=== PATIENT | female | born 1945 | race Hispanic/Latino ===

== ENCOUNTER 2016-10-15 08:43 | Day surgery (SDC) | payer MEDICARE ==
[~2016-10-15 08:43] MED LIST: NACL 0.9% 1000 ML 1,000 ML IV SCH; VANCOMYCIN/NS 1 GM/250 ML 1 GM/250 ML BAG IV NR
--- NOTE | 2016-10-15 09:44 | Anesthesia Consultation ---
Anesthesia Consult and Med Hx Date of service: 10/15/16 - Airway Anesthetic Teeth Evaluation: Poor ROM Head & Neck: Adequate Mental/Hyoid Distance: Adequate Mallampati Class: Class II Intubation Access Assessment: Probably Good - Pulmonary Exam CTA: Yes - Cardiac Exam Cardiac Exam: RRR - Pre-Operative Health Status ASA Pre-Surgery Classification: ASA4 Proposed Anesthetic Plan: General - Pulmonary Hx Asthma: Yes (not treated in a long time) - Cardiovascular System Hx Hypertension: Yes - Central Nervous System Hx Psychiatric Problems: Yes - Endocrine Hx Renal Disease: Yes (not on dialysis at this time, anticipated in future) - Other Systems Hx Cancer: No
--- NOTE | 2016-10-15 09:45 | Anesthesia Day of Surgery ---
Anesthesia Day of Surgery - Day of Surgery Patient Examined: Yes Patient H&P Reviewed: Yes Patient is NPO: Yes
[2016-10-15 09:47] LABS: Basophils % (Auto) 0.7 % (0.0-1.8); Eosinophils % (Auto) 2.6 % (0.0-4.3); Hematocrit 34.3 % (30.3-42.9); Hemoglobin 11.6 gm/dl (10.1-14.3); Mean Corpuscular HGB Conc 34 % (30-34); Mean Corpuscular Hemoglobin 30 pg (28-32); Mean Corpuscular Volume 88 fl (79-97); Platelet Count 140 K/mm3 (140-440); Red Blood Count 3.91 M/mm3 (3.65-5.03); Red Cell Distribution Width 15.3 % (13.2-15.2); White Blood Count 6.9 K/mm3 (4.5-11.0)
[2016-10-15 10:00] LABS: BUN/Creatinine Ratio 10.58; Calcium 8.4 mg/dL (8.4-10.2); Chloride 97.4 mmol/L (98-107); Potassium 3.6 mmol/L (3.6-5.0)
[2016-10-15] MEDS ORDERED: MARCAINE 0.5% INFILTRATI ONE ×2 (10:43→11:49)
[2016-10-15] MEDS ORDERED: NACL 0.9% 500 ML 500 ML ONE (10:44)
[2016-10-15] MEDS ORDERED: HEPARIN 10,000 UNITS/10 ML ONE (10:44)
[2016-10-15] MEDS ORDERED: PROTAMINE SULFATE ONE (10:44)
[2016-10-15] MEDS ORDERED: XYLOCAINE 1%/ EPI 1:100,000 INFILTRATI ONE (10:45)
[2016-10-15] MEDS ORDERED: SODIUM BICARBONATE ONE (10:45)
[2016-10-15] MEDS ORDERED: VERSED ONE (10:48)
[2016-10-15] MEDS ORDERED: SUBLIMAZE ONE (10:48)
[2016-10-15] MEDS ORDERED: DIPRIVAN 10 MG/ML IV ONE (10:49)
[2016-10-15] MEDS ORDERED: HEPARIN 10,000 UNITS/10 ML IV ONE (11:49)
[2016-10-15] MEDS ORDERED: NACL 0.9% 500 ML IV ONE (11:49)
[2016-10-15] MEDS ORDERED: ePHEDrine SULFATE ONE (12:41)
[2016-10-15] MEDS ORDERED: DECADRON ONE (12:46)
--- NOTE | 2016-10-15 13:42 | Short Stay Summary ---
Short Stay Documentation Date of service: 10/15/16 - History H&P: obtained from office Past Medical History: arrhythmia, diabetes, hypertension, renal failure Social history: no significant social history - Allergies and Medications Current Medications: Allergies Penicillins Allergy (Verified 10/09/16 14:25) Anaphylaxis gel injections for joints Allergy (Uncoded 10/09/16 14:25) Rash muscle relaxers Allergy (Uncoded 10/09/16 14:25) SOB, rash Home Medications Medication Instructions Recorded Confirmed Last Taken Type Aspirin [Aspirin TAB] 325 mg PO QDAY 10/15/16 10/15/16 10/14/16 History Carvedilol [Coreg] 3.125 mg PO BID 10/15/16 10/15/16 10/15/16 History Citalopram Hydrobromide 40 mg PO 10/15/16 10/15/16 History [Citalopram HBr] Dextromethorphan Polistirex 30 mg PO 10/15/16 10/14/16 History [Delsym] Diazepam [Valium] 10 mg PO 10/15/16 10/14/16 History Furosemide [Lasix TAB] 40 mg PO PRN 10/15/16 10/15/16 10/06/16 History Gabapentin [Neurontin] 300 mg PO Q8HR 10/15/16 10/15/16 10/15/16 History Hydrochlorothiazide [HCTZ] 25 mg PO QDAY 10/15/16 10/15/16 10/15/16 History Levothyroxine Sodium [Unithroid] 112 mcg PO 10/15/16 10/15/16 History Linagliptin [Tradjenta] 5 mg PO QDAY 10/15/16 10/15/16 10/15/16 History Lovastatin [Altoprev] 20 mg PO 10/15/16 10/14/16 History Multivit-Min/Iron Fum/Folic AC 1 mg PO DAILY 10/15/16 10/15/16 10/15/16 History [Vfqfc-Njmjwso-Aokbkpkp Tablet] [place]-3/Dha/Epa/Fish Oil [[place] 3 500 mg PO DAILY 10/15/16 10/15/16 10/15/16 History 500 Softgel] Omeprazole 40 mg PO 10/15/16 10/15/16 History fentaNYL [Fentanyl] 1 each TD 10/15/16 10/14/16 History methylPREDNISolone [Medrol] 4 mg PO 10/15/16 Unknown History oxyCODONE /ACETAMINOPHEN [Percocet 1 tab PO 10/15/16 10/14/16 History 5/325] traZODone [Desyrel] 100 mg PO QHS 10/15/16 10/15/16 10/14/16 History Active Medications Sodium Chloride (Nacl 0.9% 1000 Ml) 1,000 mls @ 42 mls/hr IV DIRECT REGULO Last Admin: 10/15/16 10:15 Dose: 42 mls/hr Vancomycin HCl (Vancomycin/Ns 1 Gm/250 Ml) 1 gm in 250 mls @ 166.667 mls/hr IV PREOP NR PRN Reason: Protocol Stop: 10/15/16 23:59 Last Admin: 10/15/16 10:16 Dose: 166.667 mls/hr - Physical exam Extremities: pulses intact - Brief post op/procedure progress note Date of procedure: 10/15/16 Pre-op diagnosis: renal failure Post-op diagnosis: same Procedure: left brachiocephalic AVF creation Anesthesia: GETA Findings: patent brachial artery, no plaque, cephalic vein without evidence of thrombus Surgeon: MAGALI KINGSTON Social Media Community Manager: JANICE PERRY Estimated blood loss: minimal Pathology: none Condition: stable - Disposition Condition at discharge: Good Disposition: DC-01 TO HOME OR SELFCARE Short Stay Discharge Plan Activity: no restrictions Weight Bearing Status: Full Weight Bearing Diet: renal Wound: open to air Special Instructions: no heavy lifting Follow up with: JOYCELYN ART MD [Primary Care Provider] - 7 Days MAGALI KINGSTON DO [Staff Physician] - 14 Days
--- NOTE | 2016-10-15 13:57 | Operative Report ---
Operative Report Operative Report: Operative note: Date: 10/15/2016 Preoperative diagnosis: Renal failure Postoperative diagnosis: Same. Operation: creation of left brachiocephalic AV fistula Surgeon: Rea Liu. Asst.: Azeem Han Anesthesia: Gen. EBL: Minimal Findings: Patent brachial artery without evidence of plaque. Cephalic vein without evidence of thrombosis. Indications: 71-year-old lady with chronic kidney disease stage IV and possible start of dialysis in the near future was recommended by shellfish checker for creation of AV fistula. She was explained risks, benefits and alternatives of procedure and she chose to proceed, signed informed consent. Operative details: The ultrasound was performed identifying cephalic vein. It was compressible is good size throughout its length from the wrist level. Incision was made with 15 blade about 1 cm below elbow crease and carried down with electrocautery. Initially we dissected around cephalic vein mobilizing, then dissected the brachial artery transecting the serpiginous aponeurosis. Cephalic vein was transected distally ligating branches with 3-0 silk. It was irrigated with heparinized saline with olive-tipped syringe. Patient was heparinozed with 2000 units of heparin. Distal and proximal control for radial artery was again was gained by 2 vessel loops. Arteriotomy was created with 11 blade and extended with Johnson scissors. Anastomosis was created was running 6-0 Prolene. Before completion of anastomosis the artery was backbled and forward bled and flushed with heparinized saline. When the artery was released it had thrill in the cephalic vein as well as palpable radial pulse. Hemostasis was achieved with electrocautery it was irrigated and incision was closed in 2 layers with 3- 0 Vicryl and 4-0 Monocryl. Dermabond glue applied. Needle and sponge counts were correct 2. Patient tolerated procedure well and was transferred to PACU in stable condition.
--- NOTE | 2016-10-15 14:02 | Event Note ---
Date: 10/15/16 During the procedure it was noted that patient had bradycardia with first- degree AV block. After procedure patient had EKG done. Her cardiac history was discussed with 's nurse. She faxed recent records. The EKG was compared and there were no new changes noted. Patient had cardiac workup in August in preparation for her procedure. We'll discharge patient and she will follow up with her primary care physician and certified caregiver.
--- NOTE | 2016-10-15 14:42 | Post Anesthesia Evaluation ---
- Post Anesthesia Evaluation Patient Participated: Yes Airway Patent: Yes Stable Respiratory Function: Yes Nausea/Vomiting: No Temp > 96.8F: Yes Pain Manageable: Yes Adequeate Hydration: Yes Anesthesia Complications: No Block Receding Appropriately: Not Applicable Patient on Ventilator: No Other Comments: EKG sinus yara with 1st degree AV block.
[2016-10-15 16:06] VITALS: BP 109/42
== END 2016-10-15 15:42 | disposition home or self-care (01) ==
LOC: OR 08:43
PROVIDERS: ATTEND Surgery Vascular Surgery
DX: E11.22 Type 2 diabetes mellitus with diabetic chronic kidney disease (principal); I12.9 Hypertensive chronic kidney disease with stage 1 through stage 4 chronic kidney disease, or unspecified chronic kidney disease; N18.4 Chronic kidney disease, stage 4 (severe); I44.0 Atrioventricular block, first degree; E78.00 Pure hypercholesterolemia, unspecified; Z88.0 Allergy status to penicillin; Z88.8 Allergy status to other drugs, medicaments and biological substances; Z79.82 Long term (current) use of aspirin; Z79.899 Other long term (current) drug therapy; Z90.710 Acquired absence of both cervix and uterus; Z98.890 Other specified postprocedural states; Z96.643 Presence of artificial hip joint, bilateral; Z80.9 Family history of malignant neoplasm, unspecified; Z83.3 Family history of diabetes mellitus
CPT/HCPCS: 36415; 36821; 80048; 82962; 85025; 93005; 93010; C1757; J1100; J1644; J2250; J2704; J3010; J3370; J7030; J7040; J2720

== ENCOUNTER 2017-01-05 23:04 | Emergency (ER) | payer MEDICARE ==
[2017-01-05 23:48] LABS: Hematocrit 37.7 % (30.3-42.9); Hemoglobin 12.1 gm/dl (10.1-14.3); Mean Corpuscular HGB Conc 32 % (30-34); Mean Corpuscular Hemoglobin 29 pg (28-32); Mean Corpuscular Volume 91 fl (79-97); Platelet Count 126 K/mm3 (140-440); Red Blood Count 4.16 M/mm3 (3.65-5.03); Red Cell Distribution Width 17.1 % (13.2-15.2); White Blood Count 5.8 K/mm3 (4.5-11.0)
--- NOTE | 2017-01-06 00:05 | Cat Scan Report ---
FINAL REPORT PROCEDURE: CT HEAD/BRAIN WO CON TECHNIQUE: Computerized tomography of the head was performed without contrast material. HISTORY: hematoma from fall COMPARISON: No prior studies are available for comparison. FINDINGS: Skull and scalp: There is left frontal scalp swelling. There is no skull fracture.. Paranasal sinuses: Normal. Ventricles and subarachnoid spaces: There is mild central and cortical atrophy. There is no hydrocephalus or asymmetry.. Cerebrum: No evidence of hemorrhage, acute infarction or mass . Cerebellum and brainstem: No evidence of hemorrhage, acute infarction or mass. Vasculature: Normal. Comments: There is minimal periventricular deep white matter ischemic gliosis.. IMPRESSION: Left frontal scalp swelling. There is no skull fracture. There is no intracranial hemorrhage.
[2017-01-06 00:09] LABS: Calcium 8.7 mg/dL (8.4-10.2); Chloride 88.7 mmol/L (98-107); Potassium 4.3 mmol/L (3.6-5.0)
[2017-01-06 02:27] LABS: Bilirubin,Urine NEG (Negative); Blood,Urine NEG (Negative); Ketones,Urine NEG (Negative); Leukocyte Esterase,Urine LG (Negative); Mucus,Urine FEW /HPF; Nitrite,Urine NEG (Negative); Protein,Urine <15 mg/dL mg/dL (Negative); Urobilinogen,Urine < 2.0 mg/dL (<2.0)
[2017-01-06 04:01] VITALS: BP 114/80
--- NOTE | 2017-01-06 05:24 | Emergency Department Report ---
HPI - General Chief Complaint: Head Injury Time Seen by Provider: 01/06/17 05:08 - HPI HPI: This is a 71-year-old female presents the emergency department from home with complaint of a mechanical fall and a head injury. The patient was getting up from bed and got her feet tangled in a blanket on the floor that is therefore their puppies and this caused her to fall over and hit the left side of her forehead and/or lutheran on a wooden chest of drawers. There was no loss of consciousness. She denies any blurred vision, slurred speech or any neurological deficits. She denies any acute neck or back pain. Patient has a history of arthritis, asthma, diabetes, hypertension, chronic kidney disease. She has multiple surgeries including hysterectomy, orthopedic surgeries and partial intestinal removal. She did not take anything for her symptoms prior to presentation. ED Past Medical Hx - Past Medical History Hx Hypertension: Yes Hx Diabetes: Yes Hx GERD: Yes Hx Renal Disease: Yes ([place]) Hx Arthritis: Yes Hx Asthma: Yes (not treated in a long time) Hx HIV: No - Surgical History Hx Appendectomy: Yes Additional Surgical History: D/C x5,hysterectomy,right hip x2,right shoulder replacement,knee replacement left,intestinal twisted and partial removal-2014, - Social History Smoking Status: Never Smoker Substance Use Type: None - Medications Home Medications: Home Medications Medication Instructions Recorded Confirmed Last Taken Type Aspirin [Aspirin TAB] 325 mg PO QDAY 10/15/16 10/15/16 10/14/16 History Carvedilol [Coreg] 3.125 mg PO BID 10/15/16 10/15/16 10/15/16 History Citalopram Hydrobromide 40 mg PO 10/15/16 10/15/16 History [Citalopram HBr] Dextromethorphan Polistirex 30 mg PO 10/15/16 10/14/16 History [Delsym] Diazepam [Valium] 10 mg PO 10/15/16 10/14/16 History Furosemide [Lasix TAB] 40 mg PO PRN 10/15/16 10/15/16 10/06/16 History Gabapentin [Neurontin] 300 mg PO Q8HR 10/15/16 10/15/16 10/15/16 History Hydrochlorothiazide [HCTZ] 25 mg PO QDAY 0810/15/16 10/15/16 History Levothyroxine Sodium [Unithroid] 112 mcg PO 10/15/16 10/15/16 History Linagliptin [Tradjenta] 5 mg PO QDAY 10/15/16 10/15/16 10/15/16 History Lovastatin [Altoprev] 20 mg PO 10/15/16 10/14/16 History Multivit-Min/Iron Fum/Folic AC 1 mg PO DAILY 10/15/16 10/15/16 10/15/16 History [Tfwcg-Tsmvkym-Oyndsvnb Tablet] [place]-3/Dha/Epa/Fish Oil [[place] 3 500 mg PO DAILY 10/15/16 10/15/16 10/15/16 History 500 Softgel] Omeprazole 40 mg PO 10/15/16 10/15/16 History fentaNYL [Fentanyl] 1 each TD 10/15/16 10/14/16 History methylPREDNISolone [Medrol Dose 4 mg PO 10/15/16 Unknown History Eloy] oxyCODONE /ACETAMINOPHEN [Percocet 1 tab PO 10/15/16 10/14/16 History 5/325 mg] traZODone [Desyrel] 100 mg PO QHS 10/15/16 10/15/16 10/14/16 History ED Review of Systems ROS: Stated complaint: HEAD INJURY Other details as noted in HPI Comment: All other systems reviewed and negative Constitutional: denies: chills, fever Eyes: denies: eye pain, eye discharge, vision change ENT: denies: ear pain, throat pain Respiratory: denies: cough, shortness of breath, wheezing Cardiovascular: denies: chest pain, palpitations Gastrointestinal: denies: abdominal pain, nausea, diarrhea Genitourinary: denies: urgency, dysuria, discharge Musculoskeletal: denies: back pain, joint swelling, arthralgia Skin: denies: rash, lesions Neurological: headache. denies: numbness Physical Exam - Physical Exam Vital Signs: Vital Signs 01/05/17 01/05/17 01/06/17 23:09 23:26 03:59 Temperature 98.1 F 98.1 F 98.1 F Pulse Rate 67 69 75 Respiratory 18 18 18 Rate Blood Pressure 138/70 138/70 Blood Pressure 114/80 [Right] O2 Sat by Pulse 92 100 94 Oximetry Physical Exam: GENERAL: The patient is well-developed well-nourished. HENT: Normocephalic. There is a non-expanding hematoma with ecchymosis to the left lateral forehead. Patient has moist mucous membranes. No septal hematoma. EYES: Extraocular motions are intact. Pupils equal reactive to light bilaterally. No nystagmus. NECK: Supple. Trachea is midline. Full range of motion. CHEST/LUNGS: Clear to auscultation. There is no respiratory distress noted. HEART/CARDIOVASCULAR: Regular. There is no tachycardia. There is no gallop rub or murmur. ABDOMEN: Abdomen is soft. Non tender. SKIN: Skin is warm and dry. There is a non-expanding hematoma with ecchymosis to the left lateral forehead. NEURO: The patient is awake, alert, and oriented. The patient is cooperative. The patient has no focal neurologic deficits. The patient has normal speech. Cranial nerves II through XII grossly intact. MUSCULOSKELETAL: There is no tenderness or deformity. There is no limitation range of motion. ED Course Vital Signs 01/05/17 01/05/17 01/06/17 23:09 23:26 03:59 Temperature 98.1 F 98.1 F 98.1 F Pulse Rate 67 69 75 Respiratory 18 18 18 Rate Blood Pressure 138/70 138/70 Blood Pressure 114/80 [Right] O2 Sat by Pulse 92 100 94 Oximetry ED Medical Decision Making - Lab Data Result diagrams: 01/05/17 23:37 01/05/17 23:37 - Radiology Data Radiology results: report reviewed PROCEDURE: CT HEAD/BRAIN WO CON TECHNIQUE: Computerized tomography of the head was performed without contrast material. HISTORY: hematoma from fall COMPARISON: No prior studies are available for comparison. FINDINGS: Skull and scalp: There is left frontal scalp swelling. There is no skull fracture.. Paranasal sinuses: Normal. Ventricles and subarachnoid spaces: There is mild central and cortical atrophy. There is no hydrocephalus or asymmetry.. Cerebrum: No evidence of hemorrhage, acute infarction or mass . Cerebellum and brainstem: No evidence of hemorrhage, acute infarction or mass. Vasculature: Normal. Comments: There is minimal periventricular deep white matter ischemic gliosis.. IMPRESSION: Left frontal scalp swelling. There is no skull fracture. There is no intracranial hemorrhage. Transcribed By: CO Dictated By: AVTAR FERRO MD Electronically Authenticated By: AVTAR FERRO MD Signed Date/Time: 01/05/172002 - Medical Decision Making 71-year-old female presents after having a mechanical fall and hitting the left side of her head. No loss of consciousness. CT does not show any fracture, brain bleed or any acute process. She does not have any focal, motor or sensory deficits or cranial nerves are intact. There is a few labs checked through triage that showed her to have some hyponatremia with sodium of 129. I spoke briefly with the patient's nephrology service, Dr. Allison, who recommended a slight bolus and then a repeat of the labs. The patient and her family of heart event here for a few hours and they do not want to stay any further. They say that they have close follow-up in the next 2 days with both primary care and nephrology. Since she appears otherwise a symptomatically from hyponatremia, she will sign the AMA form but will be given discharge paperwork and encouraged follow-up with her physicians. She'll return to the ER with any worsening symptoms or any acute distress. - Differential Diagnosis skull fracture, brain bleed, concussion, contusion Critical Care Time: No Critical care attestation.: If time is entered above; I have spent that time in minutes in the direct care of this critically ill patient, excluding procedure time. ED Disposition Clinical Impression: Hyponatremia Fall Qualifiers: Encounter type: initial encounter Qualified Code(s): W19.XXXA - Unspecified fall, initial encounter CKD (chronic kidney disease) Qualifiers: Chronic kidney disease stage: unspecified stage Qualified Code(s): N18.9 - Chronic kidney disease, unspecified Scalp hematoma Qualifiers: Encounter type: initial encounter Qualified Code(s): S00.03XA - Contusion of scalp, initial encounter Head injury Qualifiers: Encounter type: initial encounter Qualified Code(s): S09.90XA - Unspecified injury of head, initial encounter Disposition: DC-07 LEFT AGAINST MED ADVICE Is pt being admited?: No Condition: Stable Instructions: Hyponatremia (ED), Minor Head Injury (ED), Fall Prevention (ED) Additional Instructions: Please follow-up with your primary care physician and your ssis architect. Return to the emergency department if you change your mind about further evaluation regarding your hyponatremia, low sodium level. Referrals: JOYCELYN ART MD [Primary Care Provider] - ADIEL PIERCE MD [Staff Physician] - EPIFANIO Forms: AMA Form Time of Disposition: 05:12
== END 2017-01-06 05:15 | disposition left against medical advice (07) ==
LOC: ED 23:04
DX: S00.03XA Contusion of scalp, initial encounter (principal); S09.90XA Unspecified injury of head, initial encounter; E11.22 Type 2 diabetes mellitus with diabetic chronic kidney disease; I12.9 Hypertensive chronic kidney disease with stage 1 through stage 4 chronic kidney disease, or unspecified chronic kidney disease; N18.9 Chronic kidney disease, unspecified; K21.9 Gastro-esophageal reflux disease without esophagitis; M19.90 Unspecified osteoarthritis, unspecified site; J45.909 Unspecified asthma, uncomplicated; Z79.82 Long term (current) use of aspirin; Z98.890 Other specified postprocedural states; W01.190A Fall on same level from slipping, tripping and stumbling with subsequent striking against furniture, initial encounter; Y93.9 Activity, unspecified; Y92.89 Other specified places as the place of occurrence of the external cause; Y99.9 Unspecified external cause status
CPT/HCPCS: 36415; 70450; 80048; 81001; 85027

== ENCOUNTER 2017-04-30 10:47 | Outpatient (CLI) | payer MEDICARE ==
[2017-04-30 11:19] LABS: Calcium 8.8 mg/dL (8.4-10.2)
== END 2017-04-30 10:48 | disposition home or self-care (01) ==
LOC: LAB 10:47
PROVIDERS: ATTEND Internal Medicine Cardiovascular Disease
DX: I12.9 Hypertensive chronic kidney disease with stage 1 through stage 4 chronic kidney disease, or unspecified chronic kidney disease (principal); N18.4 Chronic kidney disease, stage 4 (severe); J45.909 Unspecified asthma, uncomplicated; F32.9 Major depressive disorder, single episode, unspecified; Z79.899 Other long term (current) drug therapy
CPT/HCPCS: 36415; 80048